=== PATIENT | male | born 1965 | race Caucasian/White ===

== ENCOUNTER 2016-05-04 14:13 | Emergency (ER) | payer BC, OTHER ==
[~2016-05-04] VITALS: Ht 188 cm; Wt 113.4 kg
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
[2016-05-04 14:15] VITALS: BP_SYST 166; BP_DIAS 10; BP_DIAS 101; PULSE 119; RESP 18; TEMP 98.8; O2SAT 92
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
--- NOTE | 2016-05-04 14:25 | NUR ---
Dr. Brown at bedside
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
--- NOTE | 2016-05-04 14:27 | NUR ---
Patient now states that pain radiates up to neck. Placed on modified c-spine precautions with hard collar in place. Addendum: 05/04/[address] Stephanie valles
[2016-05-04] MEDS ORDERED: KETOROLAC TROMETHAMINE 60 MG/2 ML VIAL IM ONE (14:30)
--- NOTE | 2016-05-04 15:41 | NUR ---
Patient in stable condition, no distress noted.
--- NOTE | 2016-05-04 16:15 | NUR ---
ER Physician at bedside. C-spine cleared by . Moves all extremities before and after backboard removal. Hard collar removed by Dr. Brown.
--- NOTE | 2016-05-04 16:21 | NUR ---
ER MD Brown at bedside discussing plan of care and home care
[2016-05-04 16:31] VITALS: BP 129/82; PULSE 81; RESP 17; TEMP 98; O2SAT 97
--- NOTE | 2016-05-04 16:31 | NUR ---
Patient given written and verbal discharge instructions and verbalizes understanding. ER MD Brown discussed with patient the results and treatment provided. Patient in stable condition. ID arm band removed. Rx of penny & jl given. Patient educated on pain management and to follow up with PMD. Pain Scale 0/10. Opportunity for questions provided and answered.
== END 2016-05-04 16:31 | disposition home or self-care (01) ==
LOC: SED 14:13
DX: S16.1XXA Strain of muscle, fascia and tendon at neck level, initial encounter (principal); F17.200 Nicotine dependence, unspecified, uncomplicated; Z71.6 Tobacco abuse counseling; V89.2XXA Person injured in unspecified motor-vehicle accident, traffic, initial encounter; Y93.89 Activity, other specified; Y92.89 Other specified places as the place of occurrence of the external cause; Y99.8 Other external cause status
CPT/HCPCS: 71010; 72125; 72128; 72131; 73030; 93005; 96372; 99284; J1885